=== PATIENT | female | born 1955 | race African-American/Black ===

== ENCOUNTER 2016-06-05 15:37 | Emergency (ER) | payer OTHER ==
[~2016-06-05] VITALS: Ht 160 cm; Wt 130.6 kg
--- NOTE | 2016-06-05 17:33 | ED DYSPNEA/ASTHMA COMPLAINT ---
History of Present Illness General Chief Complaint: Dyspnea (COPD, CHF, Other) Stated Complaint: SOB, HX ASTHMA Source: patient Exam Limitations: no limitations Vital Signs & Intake/Output Vital Signs & Intake/Output Vital Signs Date Time Temp Pulse Resp B/P Pulse O2 O2 Flow FiO2 Ox Delivery Rate 06/05 1820 100 18 147/93 97 Room Air 06/05 1746 95 06/05 1607 98.3 109 20 143/91 97 Room Air Allergies Coded Allergies: MDX - ASA (aspirin) (RESP 05/03/11) MDX - Acetaminophen (From PERCOCET) (VOMITING 01/29/11) MDX - Apple (Apple) (UNKNOWN 05/03/11) MDX - Codeine (CODEINE) (ITCH 05/03/11) MDX - Erythromycin (HIVES 05/03/11) MDX - Oxycodone (From PERCOCET) (VOMITING, ITCH 05/03/11) MDX - PCN (penicillin) (HIVES 05/03/11) MDX - Tetracycline (HIVES 05/03/11) MDX - Lactose (INTOLERANT 05/03/11) Reconcile Medications Albuterol Sulfate 2.5 MG/3 ML (0.083 %) VIAL.NEB 1 Vial INH/WILIAM Q4P PRN WHEEZING/SHORTNESS OF BREATH Benzonatate (Tessalon Perle) 100 MG CAPSULE 1 CAP PO TID PRN COUGH Duloxetine HCl 60 MG CAPSULE.DR 1 CAP PO DAILY ANXIETY (Reported) Morphine Sulfate 15 MG TABLET 1 TAB PO BIDP PRN PAin (Reported) Triage Note: PRESENTS TO ED FOR EVALUATION OF DIFF BREATHING. + HX OF ASTHMA. DIFF BREATHING STARTED YESTERDAY AND SHE HAS BEEN TAKING HER ADVAIR AND ALBUTEROL TREATMENT WITH LITTLE IMPROVEMENT SHE STATED. Triage Nurses Notes Reviewed? yes HPI: Patient is a 60 year old female presents complaining of cough with yellow sputum production, wheezing and dyspnea. Symptoms onset yesterday. Patient used her albuterol inhaler yesterday with moderate improvement and her advair inhaler this morning with some improvement. Wheezing is currently mild, dyspnea is currently mild. Chest pressure with cough, no chest pressure at rest or chest pressure currently. Denies fevers, chills, palpitations, lower extremity swelling, sick contacts. (HAMILTON ORELLANA,OSMANY) Past History Travel History Traveled to [place] past 21 day No Medical History Any Pertinent Medical History? see below for history Cardiovascular: hypertension, MORBID OBESITY Respiratory: asthma Surgical History Surgical History: non-contributory Psychosocial History Who do you live with Spouse What is your primary language Kazakh Tobacco Use: Never used Family History Hx Contributory? No (OSMANY BARROSO) Review of Systems Review of Systems Constitutional: Denies: chills, fever. EENTM: Reports: no symptoms. Respiratory: Reports: see HPI. Cardiovascular: Reports: chest pain (with cough only). GI: Denies: abdominal pain, nausea, vomiting. Musculoskeletal: Reports: no symptoms. Skin: Reports: no symptoms. Neurological/Psychological: Reports: no symptoms. Hematologic/Endocrine: Reports: other (hx diabetes, blood sugar 100's). Immunologic/Allergic: Denies: splenectomy. (OSMANY BARROSO) Physical Exam Physical Exam General Appearance: alert, awake, obese Head: atraumatic, normal appearance Eyes: Bilateral: normal appearance, PERRL, EOMI. Ears, Nose, Throat: normal pharynx, normal ENT inspection, hearing grossly normal Neck: normal inspection, supple, full range of motion Respiratory: mildly diminished lung sounds diffusely. No accessory muscle use. No visible respiratory distress Cardiovascular: regular rate/rhythm Peripheral Pulses: 2+ dorsalis pedis (R), 2+ dorsalis pedis (L) Extremities: No lower extremity edema Neurologic/Psych: no motor/sensory deficits, awake, alert, oriented x 3, normal gait, normal mood/affect Skin: intact, normal color, warm/dry Lymphatic: no anterior cervical konrad Core Measures ACS in differential dx? No Severe Sepsis Present: No Septic Shock Present: No (OSMANY BARROSO) Progress Differential Diagnosis: asthma, bronchitis, CHF, COPD, pulmonary embolism, pneumonia, unstable angina Plan of Care: Orders Procedure Date/time Status FingerStick- Glucose 06/05 1740 Active 06/05/2016 6:29:25 PM: Patient reports improvement after nebulizer treatment. Patient appears to be resting comfortably. Awaiting results of chest x-ray. Results a chest x-ray discussed with patient. Patient resting comfortably, feels improved after nebulizer treatment. Appears stable for discharge, recommended patient following up with her primary care provider this week for further evaluation (OSMANY BARROSO) Diagnostic Imaging: Viewed by Me: Radiology Read. Discussed w/RAD: Radiology Read. Radiology Impression: PATIENT: LUISITO RUSH PRESENT AGE: 60 PATIENT ACCOUNT NO: [id number] : 59 LOCATION: [facility] ORDERING PHYSICIAN: OSMANY ORELLANA SERVICE DATE: 06/05/16 EXAM TYPE: RAD - XRY-CHEST XRAY, PA AND LATERAL EXAMINATION: XR CHEST CLINICAL INFORMATION: Cough with sputum production. Dyspnea. COMPARISON: None TECHNIQUE: 2 views of the chest were obtained. FINDINGS: Exam limited by body habitus. No significant abnormality is noted involving the heart, lungs, mediastinum, bony thorax or soft tissues. IMPRESSION: No acute abnormality of the chest. DICTATED BY: REESE CHOWDHURY MD DATE/TIME DICTATED:06/05/161832 SUPER[employer]UR[employer]:SHARIF DATE/TIME TRANSCRIBED:06/05/161832 CONFIDENTIAL, DO NOT COPY WITHOUT APPROPRIATE AUTHORIZATION. <Electronically signed in Other Vendor System> SIGNED BY: REESE CHOWDHURY MD 06/05/161837 Initial ED EKG: none (OSMANY BARROSO) Departure Departure Time of Disposition: 1852 Disposition: HOME OR SELF CARE Condition: Stable Clinical Impression Primary Impression: Bronchitis Referrals: HCAYA CARPIO APRN (PCP/Family) Additional Instructions: Follow-up with your primary care provider this week for further evaluation. Use your nebulizer every 4 hours as needed for wheezing and shortness of breath. Monitor your blood sugars. Return to the emergency department breathing worsening, unable to say hydrated, or worsening of symptoms. Departure Forms: Customer Survey General Discharge Information Prescriptions: Current Visit Scripts Albuterol Sulfate 1 Vial INH/WILIAM Q4P PRN WHEEZING/SHORTNESS OF BREATH #50 Vial Benzonatate (Tessalon Perle) 1 CAP PO TID PRN COUGH #21 CAP (OSMANY BARROSO) PA/PUBLISHING SPECIALIST Co-Sign Statement Statement: ED Attending supervision documentation- [] I saw and evaluated the patient. I have also reviewed all the pertinent lab results and diagnostic results. I agree with the findings and the plan of care as documented in the PA's/PUBLISHING SPECIALIST's documentation. [x] I have reviewed the ED Record and agree with the PA's/PUBLISHING SPECIALIST's documentation. [] Additions or exceptions (if any) to the PAs/PUBLISHING SPECIALIST's note and plan are summarized below: [] (ELIDA SPRINGER DO) Critical Care Note Critical Care Note Critical Care Time: non-applicable (HAMILTON ORELLANA,OSMANY)
[2016-06-05 18:20] VITALS: BP 147/93
--- NOTE | 2016-06-05 18:38 | RADIOLOGY REPORT ---
EXAMINATION: XR CHEST CLINICAL INFORMATION: Cough with sputum production. Dyspnea. COMPARISON: None TECHNIQUE: 2 views of the chest were obtained. FINDINGS: Exam limited by body habitus. No significant abnormality is noted involving the heart, lungs, mediastinum, bony thorax or soft tissues. IMPRESSION: No acute abnormality of the chest.
[2016-06-05] MEDS ORDERED: ALBUTEROL2.5 MG/3 M INH/SOL (18:55)
[2016-06-05] MEDS ORDERED: TESSALON PERLE100 M1 PO (18:55)
[2016-06-05] MEDS ORDERED: DULOXETINE HCL60 MG PO (18:59)
[2016-06-05] MEDS ORDERED: MORPHINE SULFAT15 M4 PO (19:05)
== END 2016-06-05 19:06 ==
LOC: ERH 15:37
DX: J40 Bronchitis, not specified as acute or chronic (principal)
CPT/HCPCS: 1263

== ENCOUNTER 2016-07-06 20:22 | Emergency (ER) | payer OTHER ==
[~2016-07-06] VITALS: Ht 160 cm; Wt 130.6 kg
[~2016-07-06 20:22] MED LIST: ALBUTEROL2.5 MG/3 M INH/SOL; DULOXETINE HCL60 MG PO; MORPHINE SULFAT15 M4 PO; TESSALON PERLE100 M1 PO
[2016-07-06] MEDS ORDERED: LISINOPRIL-HCT1 EAC1 PO (20:30)
[2016-07-06] MEDS ORDERED: CYMBALTA60 M1 PO (20:30)
[2016-07-06] MEDS ORDERED: GABAPENTIN400 M2 PO (20:30)
[2016-07-06] MEDS ORDERED: NUCYNTA50 M1 PO (20:31)
[2016-07-06] MEDS ORDERED: LANTUS SOL100 UNIT/1 SC (20:32)
[2016-07-06] MEDS ORDERED: ATORVASTATIN CA10 M1 PO (20:32)
[2016-07-06] MEDS ORDERED: BUSPIRONE HCL30 M1 PO (20:32)
[2016-07-06] MEDS ORDERED: PREDNISONE20 M1 PO (20:33)
[2016-07-06] MEDS ORDERED: HUMULIN N100 UNIT/2 SC (20:34)
--- NOTE | 2016-07-06 21:12 | ED GENERAL ADULT ---
History of Present Illness General Chief Complaint: General Adult Stated Complaint: BIBA, LOW BLOOD SUGAR Source: patient, old records, EMS, police Exam Limitations: no limitations Vital Signs & Intake/Output Vital Signs & Intake/Output Vital Signs Date Time Temp Pulse Resp B/P Pulse O2 O2 Flow FiO2 Ox Delivery Rate 07/06 2025 98.2 80 16 169/79 98 Room Air Room Air Allergies Coded Allergies: MDX - ASA (aspirin) (RESP 05/03/11) MDX - Acetaminophen (From PERCOCET) (VOMITING 01/29/11) MDX - Apple (Apple) (UNKNOWN 05/03/11) MDX - Codeine (CODEINE) (ITCH 05/03/11) MDX - Erythromycin (HIVES 05/03/11) MDX - Oxycodone (From PERCOCET) (VOMITING, ITCH 05/03/11) MDX - PCN (penicillin) (HIVES 05/03/11) MDX - Tetracycline (HIVES 05/03/11) MDX - Lactose (INTOLERANT 05/03/11) Reconcile Medications Albuterol Sulfate 2.5 MG/3 ML (0.083 %) VIAL.NEB 1 Vial INH/WILIAM Q4P PRN WHEEZING/SHORTNESS OF BREATH Atorvastatin Calcium 10 MG TABLET 1 TAB PO DAILY CHOLESTEROL (Reported) Benzonatate (Tessalon Perle) 100 MG CAPSULE 1 CAP PO TID PRN COUGH Buspirone HCl 30 MG TABLET 1 TAB PO BID DEPRESSION (Reported) Duloxetine HCl 60 MG CAPSULE.DR 1 CAP PO DAILY ANXIETY (Reported) Duloxetine HCl (Cymbalta) 60 MG CAPSULE.DR 1 CAP PO DAILY DEPRESSION ( Reported) Gabapentin 400 MG CAPSULE 1 CAP PO TID DEPRESSION (Reported) Insulin Glargine,Hum.rec.anlog (Lantus Solostar) 100 UNIT/ML (3 ML) INSULN.PEN 30 UNIT SC QPM DIABETES (Reported) Insulin NPH Human Isophane (Humulin N Kwikpen) 100 UNIT/ML (3 ML) INSULN.PEN 100 UNITS SC DIABETES (Reported) Lisinopril/Hydrochlorothiazide (Lisinopril-Hctz 20-25 MG Tab) 20 MG-25 MG TABLET 1 TAB PO DAILY HTN (Reported) Morphine Sulfate 15 MG TABLET 1 TAB PO BIDP PRN PAin (Reported) Prednisone 20 MG TABLET 1 TAB PO DAILY UNK (Reported) Tapentadol HCl (Nucynta) 50 MG TABLET 50 MG PO BID PAIN (Reported) Triage Note: BROUGHT IN BY EMS AND [employer] DUE TO LIGHT HEADEDNESS AND LOW BLOOD SUGAR, UPON ARRIVAL EMS STATES SUGAR WAS 64 AND WAS GIVEN A SANDWHICH AND GLUCOSE, AFTER GIVEN SUGARS CAME BACK UP TO 104, STILL C/O LIGHTHEADEDNESS AND HEADACHE Triage Nurses Notes Reviewed? yes Onset: Afternoon Duration: hour(s):, constant, continues in ED Timing: recent history Severity: moderate No Modifying Factors: none LMP (ages 10-50): post menopausal : No Patient currently breastfeeds: No HPI: Several hours prior to admission patient developed frontal headache radiating to the back of her head constant. She reports getting headaches when her blood pressure is elevated takes lisinopril and goes to bed. She denies fever chills nausea vomiting diarrhea abdominal pain chest pain shortness of breath dysuria rash bleeding. Past History Travel History Traveled to [place] past 21 day No Medical History Any Pertinent Medical History? see below for history Cardiovascular: hypertension, MORBID OBESITY Respiratory: asthma Surgical History Surgical History: non-contributory Psychosocial History Who do you live with Spouse What is your primary language Chinese Tobacco Use: Never used Family History Hx Contributory? No Review of Systems Review of Systems Constitutional: Reports: no symptoms. EENTM: Reports: no symptoms. Respiratory: Reports: no symptoms. Cardiovascular: Reports: no symptoms. GI: Reports: no symptoms. Genitourinary: Reports: no symptoms. Musculoskeletal: Reports: no symptoms. Skin: Reports: no symptoms. Neurological/Psychological: Reports: see HPI, headache. Hematologic/Endocrine: Reports: no symptoms. Immunologic/Allergic: Reports: no symptoms. All Other Systems: Reviewed and Negative Physical Exam Physical Exam General Appearance: well developed/nourished, alert, awake, anxious, mild distress, obese Head: atraumatic, normal appearance Eyes: Bilateral: normal appearance, PERRL, EOMI. Ears, Nose, Throat: normal pharynx, normal ENT inspection Neck: normal inspection, supple, full range of motion, no midline tenderness Respiratory: normal breath sounds, chest non-tender, no respiratory distress, quiet respiration, lungs clear Cardiovascular: regular rate/rhythm, normal peripheral pulses, norml femoral pulses equa Peripheral Pulses: 4+ carotid (R), 4+ carotid (L) Gastrointestinal: normal bowel sounds, soft, non-tender, no organomegaly Back: normal inspection, normal range of motion, no vertebral tenderness Extremities: normal inspection, normal capillary refill, normal range of motion, no edema Neurologic/Psych: no motor/sensory deficits, awake, alert, oriented x 3, normal gait, normal mood/affect, undergraduate advisor II-XII nml as tested Reflexes: 2+: bicep (R), bicep (L). Skin: intact, normal color, warm/dry Lymphatic: no anterior cervical konrad Core Measures ACS in differential dx? No CVA/TIA Diagnosis: No Severe Sepsis Present: No Septic Shock Present: No Progress Differential Diagnoses I considered the following diagnoses in my evaluation of the patient: Tension headache hypertension Plan of Care: Current Medications Sig/Luna Start time Last Medication Dose Stop Time Status Admin Hydrochlorothiazide 25 MG ONCE ONE 07/06 2099 UNVr (Hydrodiuril) 07/06 2100 Initial ED EKG: none Departure Departure Time of Disposition: 2114 Disposition: HOME OR SELF CARE Condition: Stable Clinical Impression Primary Impression: Tension headache Secondary Impressions: Hypertension Qualifiers: Hypertension type: essential hypertension Qualified Code: I10 - Essential (primary) hypertension Referrals: CHAYA CARPIO APRN (PCP/Family) Departure Forms: Customer Survey General Discharge Information Critical Care Note Critical Care Note Critical Care Time: non-applicable
[2016-07-06 21:55] VITALS: BP 142/65
== END 2016-07-06 22:04 ==
LOC: ERH 20:22
DX: G44.209 Tension-type headache, unspecified, not intractable (principal); I10 Essential (primary) hypertension

== ENCOUNTER 2017-09-06 15:08 | Emergency (ER) | payer OTHER ==
[~2017-09-06] VITALS: Ht 167.6 cm; Wt 147.4 kg
[~2017-09-06 15:08] MED LIST changes: +ATORVASTATIN CA10 M1 PO; +BUSPIRONE HCL30 M1 PO; +COZAAR100 M1 PO; +CYMBALTA60 M1 PO; +FLOVENT HFA12 G1 INH; +GABAPENTIN400 M2 PO; +HUMULIN N100 UNIT/2 SC; +HYDROCHLOROTHIA25 M1 PO; +LANTUS SOL100 UNIT/1 SC; +LISINOPRIL-HCT1 EAC1 PO; +MECLIZINE HCL12.5 M1 PO; +MONTELUKAST SOD10 M1 PO; +NIFEDIPINE ER60 M2 PO; +NOVOLOG100 UNIT/2 SC; +NUCYNTA50 M1 PO; +PREDNISONE20 M1 PO
--- NOTE | 2017-09-06 15:57 | CT SCAN REPORT ---
EXAMINATION: CT HEAD WITHOUT CONTRAST CLINICAL INFORMATION: Slurred speech and weakness on right. COMPARISON: CT scan of the head 01/10/2017 and MRI scan of the brain 01/11/2017. TECHNIQUE: Contiguous axial imaging was performed from the skull base to vertex without intravenous administration of contrast. DLP: 642.09 mGy-cm FINDINGS: There is no evidence of acute intracranial hemorrhage or territorial infarction. No abnormal mass effect or midline shift is seen. Delacruz to white matter differentiation is well preserved. No extra-axial fluid collections are identified. The ventricles are normal in size. There is no abnormal attenuation within the brain parenchyma. There are no acute osseous findings. There is hyperostosis frontalis interna. The soft tissues are unremarkable. The mastoid air cells and visualized portions of the paranasal sinuses are well aerated. IMPRESSION: 1. There are no acute bleeds or territorial infarcts.
--- NOTE | 2017-09-06 15:57 | RADIOLOGY REPORT ---
EXAMINATION: XR PORTABLE CHEST CLINICAL INFORMATION: Shortness of breath. Evaluate for pneumonia. COMPARISON: Portable chest 02/07/2017. TECHNIQUE: Portable AP view of the chest was obtained. FINDINGS: No significant abnormality is noted involving the heart, lungs, mediastinum, bony thorax or soft tissues. IMPRESSION: Unremarkable examination.
[2017-09-06 16:17] LABS: ABSOLUTE BASOPHIL COUNT 0 /CUMM (0.0-0.2); ABSOLUTE EOSINOPHIL COUNT 0.2 /CUMM (0.0-0.7); ABSOLUTE GRANULOCYTE CT 2.3 /CUMM (1.4-6.5); ABSOLUTE LYMPH COUNT 2.8 /CUMM (1.2-3.4); ABSOLUTE MONOCYTE COUNT 0.5 /CUMM (0.10-0.60); BASOPHIL % 0.1 % (0.0-2.0); EOSINOPHIL % 2.9 % (0-5); GRANULOCYTE % 40.1 % (42.2-75.2); HEMATOCRIT 38.2 % (37-47); MEAN CORPUSCULAR HGB 31.6 PG (27.0-31.0); MEAN CORPUSCULAR HGB CONC 33.4 G/DL (33.0-37.0); MEAN CORPUSCULAR VOLUME 94.5 FL (81.0-99.0); MEAN PLATELET VOLUME 8.1 FL (7.4-10.4); PLATELET COUNT 317 /CUMM (130-400); RBC DISTRIBUTION WIDTH 13.5 % (11.5-14.5); RED BLOOD CELL CT 4.04 /CUMM (4.20-5.40); WHITE BLOOD CELL COUNT 5.7 /CUMM (4.8-10.8)
[2017-09-06 19:17] VITALS: BP 153/71
[2017-09-06] MEDS ORDERED: LEVAQUIN500 M1 PO (19:47)
[2017-09-06] MEDS ORDERED: PROVENTIL HFA6.7 GM INH (19:47)
[2017-09-06] MEDS ORDERED: PREDNISONE20 M1 PO (19:47)
--- NOTE | 2017-09-07 10:40 | ED GENERAL ADULT ---
See Addendum History of Present Illness General Chief Complaint: Dyspnea (COPD, CHF, Other) Stated Complaint: SOB/CHEST TIGHTNESS Source: patient Exam Limitations: poor historian Vital Signs & Intake/Output Vital Signs & Intake/Output Vital Signs Date Time Temp Pulse Resp B/P B/P Pulse O2 O2 Flow FiO2 Mean Ox Delivery Rate 09/06 1916 75 20 153/71 97 Room Air 09/06 1610 97 09/06 1606 96 Room Air Room Air 09/06 1557 98.1 86 18 158/92 96 Room Air Room Air 09/06 1512 98.0 90 18 166/92 97 Room Air Room Air ED Intake and Output 09/07 0000 09/06 1200 Intake Total Output Total Balance Patient 325 lb Weight Weight Estimated Measurement Method Allergies Coded Allergies: Penicillins (Intermediate, HIVES 07/06/16) tetracycline (Intermediate, HIVES 07/06/16) apple (UNKNOWN 07/06/16) aspirin (UNKNOWN 07/06/16) codeine (ITCH 07/06/16) erythromycin base (From Erythrocin) (HIVES 07/06/16) morphine (ITCH 01/11/17) acetaminophen (From Percocet) (Intermediate, VOMITING, ITCH 07/06/16) oxycodone (From Percocet) (Intermediate, VOMITING, ITCH 07/06/16) lactose (Mild, LACTOSE INTOLERANT 07/06/16) Reconcile Medications Albuterol Sulfate (Proventil Hfa) 90 MCG HFA.AER.AD 2 PUF INH Q4 ASTHMA Albuterol Sulfate 2.5 MG/3 ML (0.083 %) VIAL.NEB 1 Vial INH/WILIAM Q4P PRN WHEEZING/SHORTNESS OF BREATH Atorvastatin Calcium 10 MG TABLET 1 TAB PO DAILY CHOLESTEROL (Reported) Buspirone HCl 30 MG TABLET 1 TAB PO DAILY Depression (Reported) Fluticasone Propionate (Flovent Hfa) 110 MCG/ACTUATION AER.W.ADAP 2 PUF INH BID shortness of breath . Gabapentin 400 MG CAPSULE 1 CAP PO AT BEDTIME Neuropathy (Reported) Hydrochlorothiazide 25 MG TABLET 25 MG PO DAILY blood pressure . Insulin Aspart (Novolog) 100 UNIT/ML VIAL 1 UNITS SC TIDAC DIABETES . <150 no insulin 151-200 3u 201-250 4u 251-300 5u 301-350 6u 351-400 7u >400 8u, call Insulin Glargine,Hum.rec.anlog (Lantus Solostar) 100 UNIT/ML (3 ML) INSULN.PEN 15 UNIT SC QPM DIABETES Levofloxacin (Levaquin) 500 MG TABLET 1 TAB PO DAILY PRN BRONCHITIS Losartan (Cozaar) 100 MG TABLET 100 MG PO DAILY blood pressure . Meclizine HCl 12.5 MG TABLET 12.5 MG PO TID PRN VERTIGO . Montelukast Sodium 10 MG TABLET 10 MG PO AT BEDTIME shortness of breath . Nifedipine (Nifedipine ER) 60 MG TAB.ER.24 60 MG PO DAILY blood pressure . Prednisone 20 MG TABLET 1 TAB PO DAILY ASTHMA Triage Nurses Notes Reviewed? yes Onset: Abrupt Duration: day(s): Timing: recent history HPI: 09/06/17 61-year-old female presents to the emergency department for difficulty breathing. Concern was raised for a stroke as she has left sided facial weakness and has been having trouble speaking. History was difficult to ascertain initially, however after speaking to the of the patient , he states she's been having difficulty speaking for several days and this is what happens when she gets asthma. She has an underlying facial droop. She was last speaking normally approximate 72 hours prior to arrival. She also has chronic right lower extremity weakness according to the and the patient. Stat CT scan was obtained. Albuterol nebulizer treatment was ordered Past History Travel History Traveled to [place] past 21 day No Medical History Any Pertinent Medical History? see below for history Neurological: NONE EENT: NONE Cardiovascular: hypertension, MORBID OBESITY Respiratory: asthma Gastrointestinal: NONE Hepatic: NONE Renal: NONE Musculoskeletal: osteoarthritis Psychiatric: NONE Endocrine: diabetes Blood Disorders: NONE Cancer(s): NONE History of MRSA: No History of VRE: No History of CDIFF: No Surgical History Surgical History: non-contributory Psychosocial History Who do you live with Spouse What is your primary language Arabic Family History Hx Contributory? No Review of Systems Review of Systems Constitutional: Denies: fever. EENTM: Reports: see HPI. Respiratory: Reports: cough, short of breath. Cardiovascular: Denies: chest pain. GI: Denies: abdominal pain. Genitourinary: Reports: no symptoms. Musculoskeletal: Reports: no symptoms. Skin: Reports: no symptoms. Neurological/Psychological: Reports: see HPI. Hematologic/Endocrine: Reports: no symptoms. Immunologic/Allergic: Reports: no symptoms. Physical Exam Physical Exam General Appearance: well developed/nourished, alert, awake, anxious, moderate distress Head: atraumatic, normal appearance Eyes: Bilateral: normal appearance, PERRL, EOMI. Ears, Nose, Throat: normal pharynx Neck: normal inspection, supple Respiratory: chest non-tender, poor air entry Cardiovascular: regular rate/rhythm Peripheral Pulses: 4+ radial (R), 4+ radial (L) Gastrointestinal: soft, non-tender Back: normal range of motion Extremities: normal inspection Neurologic/Psych: awake, alert, oriented x 3, she has chronic right lower extremity weakness, slight left facial droop-these are old findings according to the and the patient. Skin: intact, normal color, warm/dry Core Measures ACS in differential dx? No CVA/TIA Diagnosis: No Sepsis Present: No Sepsis Focused Exam Completed? No Progress Differential Diagnoses I considered the following diagnoses in my evaluation of the patient: [Asthma, pneumonia, CVA, TIA, PE, pneumothorax, bronchitis] Plan of Care: Orders Procedure Date/time Status Heart Healthy Diet 09/07 B Active TROPONIN LEVEL 09/06 1527 Complete D-DIMER 09/06 1527 Complete COMPREHENSIVE METABOLIC PANEL 09/06 1527 Complete CBC WITHOUT DIFFERENTIAL 09/06 1527 Complete EKG 09/06 1511 Active Laboratory Tests 09/06/17 1600: Anion Gap 13, Estimated GFR > 60, BUN/Creatinine Ratio 18.8, Glucose 124 H, Calcium 9.9, Total Bilirubin 0.4, AST 21, ALT 20, Alkaline Phosphatase 87, Troponin I < 0.01, Total Protein 7.3, Albumin 4.5, Globulin 2.8, Albumin/ Globulin Ratio 1.6, D-Dimer High Sensitivty < 200, CBC w Diff NO MAN DIFF REQ, RBC 4.04 L, MCV 94.5, MCH 31.6 H, MCHC 33.4, RDW 13.5, MPV 8.1, Gran % 40.1 L , Lymphocytes % 48.9, Monocytes % 8.0, Eosinophils % 2.9, Basophils % 0.1, Absolute Granulocytes 2.3, Absolute Lymphocytes 2.8, Absolute Monocytes 0.5, Absolute Eosinophils 0.2, Absolute Basophils 0 Initial ED EKG: sinus tachycardia, occasional PVCs unifocal Departure Departure Disposition: HOME OR SELF CARE Condition: Stable Clinical Impression Primary Impression: Asthma Referrals: Vanessa Mendez MD (PCP/Family) Departure Forms: Customer Survey General Discharge Information Prescriptions: Current Visit Scripts Albuterol Sulfate (Proventil Hfa) 2 PUF INH Q4 #1 INHAL Prednisone 1 TAB PO DAILY #5 TAB Levofloxacin (Levaquin) 1 TAB PO DAILY PRN BRONCHITIS #5 TAB Comments 09/06/17 Prior to discharge The patient was reevaluated Lungs were now clear with good air entry, or difficulty speaking completely resolved. She had no change in her underlying neurological exam from prior. Positive gag reflex. Complete relief of all symptoms after the albuterol nebulizer. She says this is typical of her asthma attacks. Her symptoms have been ongoing for 3 days and now completely resolved after the nebulizer treatment according to the patient. She says she sees Dr. Jones for her asthma. EKG showed sinus tachycardia with PVCs. Troponin was nondetectable, d- dimer was negative. Chest x-ray was negative for pneumonia. The patient was placed on a low-dose of prednisone. Albuterol metered-dose inhaler was given. Vibramycin was given for bronchitis. She will follow-up with Dr. Jones this week or return to the emergency department immediately if worse. Critical Care Note Critical Care Note Critical Care Time: 30-74 min
== END 2017-09-06 20:02 ==
LOC: ERH 15:08
PROVIDERS: Emergency Medicine
DX: J45.909 Unspecified asthma, uncomplicated (principal)
CPT/HCPCS: 1263; 71045; 93005; 93010